=== PATIENT | female | born 1985 | race Caucasian/White ===

== ENCOUNTER 2018-01-12 16:54 | Inpatient (IN) | payer MEDICAID ==
[~2018-01-12] VITALS: Ht 157.5 cm; Wt 82.8 kg
[2018-01-12] MEDS ORDERED: NAPR-58 PO (17:53)
[2018-01-12 18:28] LABS: BASOPHILS % (AUTO) 0.3 % (0.0-2.0); EOSINOPHILS % (AUTO) 0.8 % (1.0-6.0); HEMATOCRIT 41.6 % (36-46); HEMOGLOBIN 14.5 g/dL (12.0-16.0); LYMPHOCYTES # (AUTO) 2.7 K/uL (1.0-4.8); LYMPHOCYTES % (AUTO) 22.8 % (22.0-44.0); MEAN CORPUSCULAR HEMOGLOBIN 30.5 pg (26.0-34.0); MEAN CORPUSCULAR HGB CONC 34.8 G/dL (31.0-37.0); MEAN CORPUSCULAR VOLUME 88 fL (80-100); MONOCYTES # (AUTO) 0.5 K/uL (0.1-1.0); MONOCYTES % (AUTO) 4.4 % (2.0-9.0); NEUTROPHILS # (AUTO) 8.5 K/uL (1.8-7.7); NEUTROPHILS % (AUTO) 71.7 % (40.0-70.0); PLATELET COUNT (AUTO) 324 K/uL (150-450); RED BLOOD CELL COUNT(AUTO) 4.75 MIL/uL (4.00-5.20); RED CELL DISTRIBUTION WIDTH 12.6 % (11.5-14.5)
[2018-01-12 18:41] LABS: AMPHET/METH SCREEN,URINE NEGATIVE (NEGATIVE); BARBITURATE SCREEN, URINE NEGATIVE (NEGATIVE); BENZODIAZEPINES SCREEN,URINE NEGATIVE (NEGATIVE); CANNABINOID SCREEN,URINE NEGATIVE (NEGATIVE); COCAINE SCREEN,URINE NEGATIVE (NEGATIVE); METHADONE SCREEN, URINE NEGATIVE (NEGATIVE); OPIATE SCREEN,URINE NEGATIVE (NEGATIVE)
[2018-01-12 18:42] LABS: PHENCYCLIDINE SCREEN,URINE NEGATIVE (NEGATIVE)
[2018-01-12 18:50] LABS: ANION GAP 9 mmol/L (8-16); CALCIUM, TOTAL 8.7 mg/dL (8.8-10.5); CARBON DIOXIDE 28 mmol/L (22-29); CHLORIDE 104 mmol/L (98-107); CREATININE 0.75 mg/dL (0.60-1.30); GLOMERULAR FILTR. RATE CALC > 60 mL/min (>60); GLUCOSE,RANDOM 99 mg/dL (70-110); POTASSIUM 3.4 mmol/L (3.5-5.1); SODIUM SERUM 141 mmol/L (136-145); UREA NITROGEN, BLOOD 16 mg/dL (7-18)
[2018-01-12 18:51] LABS: ALANINE AMINOTRANSFERASE 70 U/L (12-78); ALBUMIN 4.1 g/dL (3.4-5.0); ALKALINE PHOSPHATASE 128 U/L (46-116); ASPARTATE AMINOTRANSFERASE 25 U/L (15-37); BILIRUBIN,TOTAL 0.3 mg/dL (0.1-1.0); TOTAL PROTEIN, SERUM 8.1 g/dL (6.4-8.2)
[2018-01-12] MEDS ORDERED: KETOROLAC TROMETHAMINE 60 MG/2 ML VIAL IM ONE (19:30)
[2018-01-12] MEDS ORDERED: IBUPROFEN 600 MG TABLET PO ONE (21:30)
[2018-01-12] MEDS ORDERED: HydrOXYzine HCL 10 MG TABLET PO ONE (23:45)
[2018-01-13] MEDS ORDERED: ZOLPIDEM TARTRATE 10 MG TABLET PO PRN (00:30)
[2018-01-13] MEDS ORDERED: LORazepam 2 MG TABLET PO PRN (00:30)
[2018-01-13] MEDS ORDERED: HALOPERIDOL 5 MG TABLET PO PRN (00:30)
[2018-01-13 01:14] VITALS: BP 146/97
[2018-01-13] MEDS ORDERED: PNEUMOCOCCAL VACCINE POLYVALENT 0.5 ML VIAL [PPSV23] IM ONE (03:45)
[2018-01-13 07:58] LABS: CHOL/HDL RATIO 4.5 (3.9-5.7); CHOLESTEROL 156 mg/dL (131-200); HCG,QUANTITATIVE < 1 mIU/mL (0-6); HDL CHOLESTEROL 35 mg/dL (40-60); LDL CHOL (CALC.) 101 mg/dL (0-130); TRIGLYCERIDES 98 mg/dL (15-150)
[2018-01-13 09:35] VITALS: BP 157/86
[2018-01-13] MEDS ORDERED: ACETAMINOPHEN 325 MG TABLET PO PRN (10:00)
[2018-01-13] MEDS ORDERED: CloNIDine HCL 0.1 MG TABLET PO PRN (10:00)
[2018-01-13] MEDS: NAPROXEN 500 MG TABLET PO SCH (16:40)
[2018-01-13 19:29] VITALS: BP 148/84
[2018-01-13] MEDS ORDERED: POTASSIUM CHLORIDE 20 MEQ ER TABLET PO ONE (22:00)
[2018-01-14 07:23] LABS: POTASSIUM 4.7 mmol/L (3.5-5.1); THYROID STIMULATING HORMONE 1.06 uIU/mL (0.36-3.74)
[2018-01-14 07:32] LABS: HEMOGLOBIN A1C 5.8 % (4.5-6.2)
[2018-01-14 09:00] VITALS: BP 121/75
[2018-01-14] MEDS: SERTRALINE HCL 50 MG TABLET PO SCH (09:40)
[2018-01-14] MEDS: AmLODIPine BESYLATE 5 MG TABLET PO SCH (09:40)
[2018-01-14] MEDS: NAPROXEN 500 MG TABLET PO SCH ×2 (09:40→16:30)
[2018-01-14 16:00] VITALS: BP 131/82
[2018-01-15 08:30] VITALS: BP 145/99
[2018-01-15] MEDS: SERTRALINE HCL 50 MG TABLET PO SCH (09:02)
[2018-01-15] MEDS: AmLODIPine BESYLATE 5 MG TABLET PO SCH (09:03)
[2018-01-15] MEDS: NAPROXEN 500 MG TABLET PO SCH ×2 (09:03→16:46)
[2018-01-15 18:41] VITALS: BP 132/88
[2018-01-16 08:30] VITALS: BP 158/68
[2018-01-16] MEDS: NAPROXEN 500 MG TABLET PO SCH (09:27)
[2018-01-16] MEDS: SERTRALINE HCL 50 MG TABLET PO SCH (09:27)
[2018-01-16] MEDS: AmLODIPine BESYLATE 5 MG TABLET PO SCH (09:28)
[2018-01-16] MEDS ORDERED: AMLO-511 PO (10:19)
[2018-01-16] MEDS ORDERED: SERT50TA12 PO (10:20)
== END 2018-01-16 13:46 | disposition home or self-care (01) | DRG 750 ==
LOC: EMS 16:55 → 3EI 01-13 00:01
PROVIDERS: ADMIT Psychiatry & Neurology Psychiatry; ATTEND Psychiatry & Neurology Psychiatry
DX: F25.1 Schizoaffective disorder, depressive type (principal); F33.2 Major depressive disorder, recurrent severe without psychotic features; R45.851 Suicidal ideations; Z91.19 Patient's noncompliance with other medical treatment and regimen; Z59.0 Homelessness; I10 Essential (primary) hypertension; R45.87 Impulsiveness; M19.90 Unspecified osteoarthritis, unspecified site; N93.8 Other specified abnormal uterine and vaginal bleeding; D72.829 Elevated white blood cell count, unspecified; E87.6 Hypokalemia; Z72.89 Other problems related to lifestyle; Z91.5 Personal history of self-harm; Z82.49 Family history of ischemic heart disease and other diseases of the circulatory system; Z83.3 Family history of diabetes mellitus
CPT/HCPCS: 76856; 83036; 84132; 84443; 99285; G0480; J1885